=== PATIENT | female | born 1980 ===

== ENCOUNTER 2024-11-22 08:02 | Outpatient (AMB) | payer BC, SELFPAY ==
--- NOTE | 2024-11-22 11:26 | A.OFFVIS_ITS ---
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 Allergies No Known Allergies Allergy (Verified 11/22/24 11:27) Medication List - Last Reconciled 11/22/24 by Raf Castaneda MD bupropion HCl XL (Wellbutrin XL) 300 mg PO QAM duloxetine 20 mg PO BID gabapentin mg PO lamotrigine ER 200 mg PO DAILY losartan-hydrochlorothiazide 50-12.5 mg 1 tab PO DAILY ziprasidone HCl 80 mg PO BID HPI HPI 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: Details: Start time: 11.17am, End time: 11.57am ?I spent 35 minutes speaking with the patient on the phone plus an additional 5 minutes reviewing and updating records for a total of 40 minutes HPI Comments Details: Previous weight loss efforts: natural supplements and self diets and exercise Wakes up: 5am, weekends 9-10am, Sleeps: 10pm Breakfast: skips Lunch: 1pm (Progresso soups, smart ones) Dinner: 6pm (rice, beans, chicken, pork Snacks: 9am (granola bar), 8pm (ice cream, candy, chips) Exercise: none, Gym membership Fluids: Coffee (1 cup/d with cream and sugar), tea: none, soda: Regular Sprite, juice: none, ETOH: none PFSH Medical History (Updated 11/22/24 @ 11:33 by Raf Castaneda MD) Sleep apnea DJD (degenerative joint disease) Anxiety Depression Bipolar 1 disorder Hypertension Morbid obesity History of female sterilization Family History (Updated 11/12/24 @ 11:28 by Ce Ramirez CMA) Mother Colon cancer Diabetes Hypertension High cholesterol Father Gout Arthritis Son ADHD Son Mental health problem Daughter No problems noted. Social History (Updated 11/12/24 @ 11:28 by Ce Ramirez CMA) Alcohol intake: never Patient Tobacco Use Status: Never used Tobacco Telehealth Telehealth Telehealth Platform: Telephone Location of provider rendering services: practice address Location of patient: address on file Patient Identification confirmed using: Name, : Yes Telehealth method: voice only Patient verbally consented to treatment: Yes Patient verbally consented to billing insurance company: Yes Patient informed of any privacy concerns related to visit: Yes Minutes spent on Phone/Video with Pt.: 40 Assessment & Plan Assessment & Plan (1) Morbid obesity: Code(s): E66.01 - Morbid (severe) obesity due to excess calories Category: Medical Plan: ?1.? Please buy the body composition scale we discussed and send me weight measurements as soon as possible and then once a week. 2. The best choice would be to purchase a stationary bike at home that can track calories. Let me know if you do so I can give you an exercise plan. 3. Goal is to lose at least 1.5-2lbs per week 5. Goal to lose at least 10% of your weight.
[2024-11-22 11:56] VITALS: BMI 53.0
== END 2024-11-22 11:58 | disposition home or self-care (01) ==
LOC: HO.HBS 08:02
PROVIDERS: PCP Student in an Organized Health Care Education/Training Program; Visit Provider Surgery
DX: E66.813 Obesity, class 3 (principal); Z68.43 Body mass index [BMI] 50.0-59.9, adult
CPT/HCPCS: 98016

== ENCOUNTER 2025-02-11 12:02 | Outpatient (REF) | payer BC, SELFPAY ==
--- NOTE | ~2025-02-11 | XR_ITS ---
EXAMINATION: XR CHEST CLINICAL INFORMATION: E66.01 - Morbid (severe) obesity due to excess calories COMPARISON: None available. TECHNIQUE: 2 views of the chest were obtained. FINDINGS: No consolidation, pleural effusion or pneumothorax. No hyperinflation. Cardiomediastinal silhouette size is normal. Multilevel moderate thoracic spondylosis. Degenerative changes in the right shoulder. XR/XR chest 2V IMPRESSION: No acute airspace disease. Spondylosis, thoracic spine. Electronically signed by: Liam Trinh MD 02/11/2025 12:51 PM EDT RP
--- NOTE | 2025-02-11 12:10 | ECG_ITS ---
Test Reason : MOR OBS Blood Pressure : */* mmHG Vent. Rate : 82 BPM Atrial Rate : 82 BPM P-R Int : 166 ms QRS Dur : 80 ms QT Int : 364 ms P-R-T Axes : 35 7 36 degrees QTcB Int : 425 ms Normal sinus rhythm Low voltage QRS Borderline ECG No previous ECGs available Referred By: Raf Castaneda Electronically Signed By: JNUIE CONNOLLY MD
[2025-02-11 12:23] LABS: MANUAL DIFF FLAG NO
[2025-02-11 13:10] LABS: Basophils Absolute Auto 0.1 X10*3/uL (0.0-0.2); Basophils Percent Auto 1.1 % (0-2); Eosinophils Absolute Auto 0.1 X10*3/uL (0.0-0.4); Eosinophils Percent Auto 1.5 % (0-4); Hematocrit 36.3 % (37.0-47.0); Hemoglobin 12.2 g/dl (12.0-16.0); Imm Gran Abs Auto 0.05 X10*3/uL (0.00-0.03); Imm Gran Pct Auto 0.7 % (0.0-0.4); Lymphocytes Absolute Auto 1.6 X10*3/uL (1.2-4.9); Lymphocytes Percent Auto 20.7 % (20-40); Mean Corpuscular HGB Conc 33.6 g/dl (31.0-35.0); Mean Corpuscular Volume 86.4 fL (80.0-98.0); Mean Platelet Volume 10.3 fL (9.4-12.3); Monocytes Absolute Auto 0.6 X10*3/uL (0.1-1.2); Monocytes Percent Auto 7.7 % (2-11); Neutrophils Absolute Auto 5.2 x10*3/uL (2.0-8.3); Neutrophils Percent Auto 68.3 % (45-73); Platelet Count 285 X10*3/uL (160-400); Red Cell Distribution Width 13.3 % (11.0-16.0); White Blood Count 7.6 X10*3/uL (4.8-10.8)
[2025-02-11 13:14] LABS: Estimated Average Glucose 105 mg/dL; Hemoglobin A1c % 5.3 % (<6.0); Total Hemoglobin (HGBA1C) 3248.6246 umol/L
[2025-02-11 13:27] LABS: Alanine Aminotransferase 7 U/L (0-31); Albumin Level 3.7 g/dL (3.5-5.0); Alkaline Phosphatase 96 U/L (39-117); Anion Gap 11 (12-20); Aspartate Amino Transferase 15 U/L (5-31); Bilirubin Total 0.4 mg/dL (0.0-1.0); Blood Urea Nitrogen 18 mg/dL (9-16); C Reactive Protein 2.33 mg/dL (< or = 0.50); Calcium 8.9 mg/dL (8.4-10.2); Carbon Dioxide 26 mmol/L (22-29); Chloride 105 mmol/L (96-108); Cholesterol 196 mg/dL (<200); Estimated Glomerular Filt Rate > 60; Glucose Random 91 mg/dL (60-115); HDL Cholesterol 57 mg/dL (>40); Iron 95 mcg/dL (30-160); LDL Cholesterol Calculated 111 mg/dL (<100); Percent Iron Saturation 31 % (15-50); Potassium 4.3 mmol/L (3.3-5.1); Sodium 138 mmol/L (135-145); Total Iron Binding Capacity 308 mcg/dL (228-428); Total Protein 7.2 g/dL (6.5-8.0); Triglycerides 143 mg/dL (<150); Unsaturated Iron Binding 213 ug/dL
[2025-02-11 13:53] LABS: Ferritin 29 ng/mL (10-250); TSH reflex Free T4 1.61 uIU/mL (0.32-4.0)
[2025-02-11 13:58] LABS: Folate 6.1 ng/mL (> or = 4.0); Vitamin B12 178 pg/mL (200-900)
[2025-02-11 14:09] LABS: Insulin 10 uU/mL (2-29)
[2025-02-14 10:19] LABS: Vitamin A 45 mcg/dL (38-98)
[2025-02-15 06:13] LABS: Zinc 59 mcg/dL (60-130)
[2025-02-20 12:43] LABS: Vitamin B1 <6 nmol/L (8-30)
== END 2025-02-11 12:03 | disposition home or self-care (01) ==
LOC: HO.XRAY 12:02
PROVIDERS: Visit Provider Surgery
DX: E66.01 Morbid (severe) obesity due to excess calories (principal); G47.30 Sleep apnea, unspecified; Z13.1 Encounter for screening for diabetes mellitus
CPT/HCPCS: 36415; 71046; 80053; 80061; 82306; 82607; 82728; 82746; 83036; 83525; 83540; 84425; 84443; 84590; 84630; 85025; 86140; 93005

== ENCOUNTER → 2025-02-11 12:10 | Outpatient (BNV) | payer BC, SELFPAY | PROVIDERS: Visit Provider Internal Medicine Cardiovascular Disease | DX: E66.01 Morbid (severe) obesity due to excess calories (principal) | CPT/HCPCS: 93010 ==

== ENCOUNTER → 2025-02-11 12:37 | Outpatient (BNV) | payer BC, SELFPAY | PROVIDERS: Visit Provider Radiology Diagnostic Radiology | DX: E66.01 Morbid (severe) obesity due to excess calories (principal) | CPT/HCPCS: 71046 ==

== ENCOUNTER → 2025-02-23 11:00 | Outpatient (AMB) | payer BC, SELFPAY ==
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
== END ==
LOC: HO.HBST 11:11
PROVIDERS: Visit Provider Counselor Mental Health
DX: F31.9 Bipolar disorder, unspecified (principal); F43.10 Post-traumatic stress disorder, unspecified
CPT/HCPCS: 90791

== ENCOUNTER 2025-03-17 11:08 | Outpatient (AMB) | payer BC, SELFPAY ==
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
== END 2025-03-17 11:59 | disposition home or self-care (01) ==
LOC: HO.HBST 11:08
PROVIDERS: Visit Provider Counselor Mental Health
DX: F31.9 Bipolar disorder, unspecified (principal); F43.10 Post-traumatic stress disorder, unspecified; Z71.89 Other specified counseling
CPT/HCPCS: 90837

== ENCOUNTER 2025-03-22 08:53 | Outpatient (REF) | payer BC, SELFPAY ==
--- NOTE | ~2025-03-22 | US_ITS ---
EXAMINATION: US ABDOMEN COMPLETE WITH LIVER ELASTOGRAPHY HISTORY: E66.01 - Morbid (severe) obesity due to excess calories TECHNIQUE: Real-time grayscale ultrasound imaging of the abdomen was performed and images were reviewed. COMPARISON: There are no prior studies for comparison. FINDINGS: Liver: The right lobe of the liver measures 18.3 cm in size. The left lobe of the liver measures 12.8 cm in size. The liver demonstrates normal homogeneous echotexture. No focal mass or intrahepatic biliary ductal dilatation is identified. There is normal hepatopedal flow in the portal vein. Ultrasound elastography of the liver was performed with 10 separate measurements of the liver parenchyma with the patient in the supine position. Measurements were obtained approximately 2 cm below Gaudencio's capsule and perpendicular to the capsule. Images are of satisfactory quality. The median shear wave velocity is 1.79 m/s. The interquartile range/median (IQR/median) is 0.18. Gallbladder and biliary tree: The gallbladder is unremarkable, without evidence of calculi, wall thickening, or pericholecystic fluid. There is no sonographic Urbina sign. The common bile duct is normal in caliber measuring 3 mm. Kidneys: The right kidney measures 10.9 cm in length. The left kidney measures 11.6 cm in length. The kidneys are unremarkable, without evidence of masses, hydronephrosis, or calculi. Pancreas: The pancreatic head, neck, and body are unremarkable. The pancreatic tail is obscured by bowel gas. Spleen: The spleen is normal in size and contour, measuring 10.1 cm in length. Abdominal aorta and inferior vena cava: The visualized portions of the abdominal aorta and inferior vena cava are normal in caliber. There is no free fluid in the abdomen. US/US abdomen comp w elastography IMPRESSION: Hepatomegaly. Otherwise unremarkable abdominal ultrasound. The median shear wave velocity in the liver is 1.79 m/s, corresponding to a median liver stiffness of 9.79 kPa. The IQR/median value is 0.18. This is indicative of a poor quality data set, and the estimated liver stiffness may be unreliable. Findings are indicative of a high elastography value suggestive of compensated advanced chronic liver disease. REFERENCE: Society of Radiologists in Ultrasound Liver Stiffness Thresholds (2019): LIVER STIFFNESS THRESHOLDS: *Shear wave velocity less than 1.3 m/s (Liver Stiffness equal or less than 5 kPa): High probability of being normal. *Shear wave velocity less than 1.7 m/s (Liver Stiffness less than 9 kPa): In the absence of other known clinical signs, rules out compensated advanced chronic liver disease. *Shear wave velocity between 1.7-2.1 m/s (Liver Stiffness 9-13 kPa): Suggestive of compensated advanced chronic liver disease but need further test for confirmation. *Shear wave velocity between 2.1-2.4 m/s (Liver Stiffness 13-17 kPa): Rules in compensated advanced chronic liver disease. *Shear wave velocity greater than 2.4 m/s (Liver Stiffness over 17 kPa): Suggestive of clinically significant portal hypertension. QUALITY OF DATA SET: *IQR/Median value equal or less that 0.15 implies a quality data set. *IQR/Median value over 0.15 implies a poor quality data set. SIGNIFICANT CHANGE FROM PRIOR EXAM: Significant change if liver stiffness measurement is 10% or greater from prior exam. OTHER CONSIDERATIONS: The stage of liver fibrosis may be overestimated in the setting of acute hepatitis, liver inflammation, elevated liver function tests, hepatic vascular congestion, obstructive cholestasis, non-fasting state, and infiltrative diseases such as amyloidosis and lymphoma. In some patients with NAFLD, the liver stiffness thresholds for compensated advanced chronic liver disease may be lower. In causes other than viral hepatitis and NAFLD, liver stiffness thresholds are not well established. Electronically signed by: Donte Jimenes MD 03/22/2025 09:36 AM EDT
== END 2025-03-22 08:54 | disposition home or self-care (01) ==
LOC: HO.US 08:53
PROVIDERS: Visit Provider Surgery
DX: E66.01 Morbid (severe) obesity due to excess calories (principal); G47.30 Sleep apnea, unspecified
CPT/HCPCS: 76700; 76981

== ENCOUNTER → 2025-03-22 08:55 | Outpatient (BNV) | payer BC, SELFPAY | PROVIDERS: Visit Provider Radiology Diagnostic Radiology | DX: R16.0 Hepatomegaly, not elsewhere classified (principal) | CPT/HCPCS: 76700; 76981 ==

== ENCOUNTER 2025-03-31 10:50 | Day surgery (SDC) | payer BC, SELFPAY ==
[2025-03-29 10:48] VITALS: BMI 53.0
--- NOTE | 2025-03-29 14:57 | HO.ANESPROP2 ---
Documented by User: Megan Damico NP 03/29/25 14:58 HPI - Anesthesia Eval Consult details Narrative: 45yo F for Upper Endoscopy BMI 53 PMFSH Active Problems Active Problems: All Active Problems Sleep apnea (Acute) DJD (degenerative joint disease) (Acute) Anxiety (Acute) Depression (Acute) Bipolar 1 disorder (Acute) Hypertension (Acute) Morbid obesity (Acute) Past Medical History Medical History Sleep apnea DJD (degenerative joint disease) Anxiety Depression Bipolar 1 disorder Hypertension Morbid obesity History of female sterilization Family History Family History Mother Colon cancer Diabetes Hypertension High cholesterol Father Gout Arthritis Son ADHD Son Mental health problem Daughter No problems noted. Surgical History Surgical History History of head, eyes, ears, nose, and throat (HEENT) surgery Social History Social History Alcohol intake: never Patient Tobacco Use Status: Never used Tobacco Advance Directives: No Advance Directives Information Provided: Yes Meds Allergies Allergy/AdvReac Type Severity Reaction Status Date / Time No Known Allergies Allergy Verified 11/22/24 11:27 Home Medications ?Medication ?Instructions ?Recorded ?Confirmed ?Last Taken ?Type duloxetine 20 mg capsule,delayed 20 mg PO BID 11/12/24 03/31/25 Unknown History release gabapentin 300 mg capsule 300 mg PO DAILY 11/12/24 03/31/25 Unknown History lamotrigine 200 mg tablet,extended 200 mg PO DAILY 11/12/24 03/31/25 Unknown History release 24 hr losartan 50 mg-hydrochlorothiazide 1 tab PO DAILY 11/12/24 03/31/25 Unknown History 12.5 mg tablet ziprasidone HCl 80 mg capsule 80 mg PO BID 11/12/24 03/31/25 Unknown History bupropion HCl 300 mg 24 hr tablet, 300 mg PO QAM 11/22/24 03/31/25 Unknown History extended release (Wellbutrin XL) Exam Height,Weight and Vital Signs: Height 5 ft 3 in Weight 135.624 kg Narrative Narrative: EKG 01/2025 Vent. Rate : 82 BPM Atrial Rate : 82 BPM P-R Int : 166 ms QRS Dur : 80 ms QT Int : 364 ms P-R-T Axes : 35 7 36 degrees QTcB Int : 425 ms Normal sinus rhythm Low voltage QRS Borderline ECG No previous ECGs available Assessment and Plan Assessment Anesthesia Assessment: Chart Reviewed Documented by User: Ana M Teague MD 03/31/25 11:20 [facility] Past Medical History Medical History Sleep apnea DJD (degenerative joint disease) Anxiety Depression Bipolar 1 disorder Hypertension Morbid obesity History of female sterilization Family History Family History Mother Colon cancer Diabetes Hypertension High cholesterol Father Gout Arthritis Son ADHD Son Mental health problem Daughter No problems noted. Surgical History Surgical History History of head, eyes, ears, nose, and throat (HEENT) surgery History of Problems with Anesthesia: No Social History Social History Alcohol intake: never Patient Tobacco Use Status: Never used Tobacco Advance Directives: No Advance Directives Information Provided: Yes Meds Allergies Allergy/AdvReac Type Severity Reaction Status Date / Time No Known Allergies Allergy Verified 11/22/24 11:27 Home Medications ?Medication ?Instructions ?Recorded ?Confirmed ?Last Taken ?Type duloxetine 20 mg capsule,delayed 20 mg PO BID 11/12/24 03/31/25 Unknown History release gabapentin 300 mg capsule 300 mg PO DAILY 11/12/24 03/31/25 Unknown History lamotrigine 200 mg tablet,extended 200 mg PO DAILY 11/12/24 03/31/25 Unknown History release 24 hr losartan 50 mg-hydrochlorothiazide 1 tab PO DAILY 11/12/24 03/31/25 Unknown History 12.5 mg tablet ziprasidone HCl 80 mg capsule 80 mg PO BID 11/12/24 03/31/25 Unknown History bupropion HCl 300 mg 24 hr tablet, 300 mg PO QAM 11/22/24 03/31/25 Unknown History extended release (Wellbutrin XL) Exam Airway Mallampati Class: III TM Dist: >3cm Neck ROM: Full Loose/Missing/Broken Teeth: No Heart: RRR Lungs: CTA Assessment and Plan Assessment Anesthesia Assessment: Anesthesia Plan Discussed Final Anesthetic Review History of Problems with Anesthesia: No NPO: Yes ASA Class: III Final Preanesthetic Review: Meds/Allgs Chart Reviewed, Consent Obtained/Reviewed and Anes Risks/Benef Reviewed Patient Risk: Intermediate Procedure Risk: Intermediate Anesthetic Plan Anesthetic Plan: MAC: Disposition: Standard PACU
[2025-03-31 11:03] VITALS: BMI 49.4
[2025-03-31 11:10] VITALS: BP 142/98; PULSE 96; RESP 18; TEMP 36.1; O2SAT 97
--- NOTE | 2025-03-31 11:10 | MHC.SHP ---
Pre-Procedural Eval Section A - 24 Hr Update-Section A only Date of Service: 03/31/25 The patient is an INPATIENT: No The patient has been examined within 24 hours of the surgical procedure. The History & Physical has been completed within 30 days and I have reviewed it.: Yes Section B - Complete if H&P > 30 days Chief Complaint: Morbid (severe) obesity due to excess calories Relevant Family History (Specify if Yes): No Relevant Social History: None Present Medications: None Medical History: No relevant PMH History of Previous Operations: No relevant previous surgery Allergies: Allergies Allergy/AdvReac Type Severity Reaction Status Date / Time No Known Allergies Allergy Verified 11/22/24 11:27 Review of Systems Sugical H&P ROS: Negative: Constitution, Cardiovascular, Respiratory, Neurological, Psychiatric, Hem-Onc, Allergic/Immunologic, Gastrointestinal, Genitourinary, Musculoskeletal, Integumentary, Endocrine and Eyes/Ears/Nose/Throat Exam Surgical H&P Exam: Normal: HEENT, Normal: Heart, Normal: Lungs, Normal: Extremities, Normal: Abdomen, Normal: Skin and Normal: Neurological Plan Diagnosis/Plan: Unchanged (EGD to assess the stomach's anatomy. Risks of bleeding and perforation were discussed with the patient and she is in agreement with the plan.) I have reviewed the history and physical and performed a pertinent physical examination on my patient. No changes have occurred unless specified. Time Spent With Patient Time: Total time managing care of this patient today ____ minutes.
--- NOTE | 2025-03-31 11:17 | P.BOP_ITS ---
Brief Operative Note Date of Service: 03/31/25 Pre-op diagnosis: Morbid obesity Post-op diagnosis: same Procedure: PROCEDURE DATE: 03/31/2025 PREOPERATIVE DIAGNOSIS: Morbid obesity POSTOPERATIVE DIAGNOSIS: ?Same as above. 1) Normal endoscopy PROCEDURE: [id number] with biopsies Surgeon: Marty Castaneda M.D.. Ph.D. Auto Air Conditioning Mechanic: None ? Anesthesia: IV sedation Estimated blood loss: ?Minimal FINDINGS AND PROCEDURE: ? OPERATIVE INDICATIONS: ?The patient is a 70 year old female known to me who is interested in bariatric surgery. Based on this information I recommended an upper endoscopy to evaluate the stomach's anatomy. Risks and complications of the surgery were discussed with the patient in advance particularly the possibility of perforation or bleeding that may require surgical intervention. The patient understood the risks and was in agreement with the plan. ? PROCEDURE: After informed consent was obtained by the patient, the patient was ?transferred to the Operating Room and was placed in the supine position.? After successful induction of IV sedation, a mouth block was inserted and the patient was placed in the left lateral decubitus position. An upper endoscopy was performed next, the oropharynx and esophagus appeared within the normal limits. There was no hiatal hernia. The z-line was smooth. Two biopsies were obtained from the distal esophagus 2-3 cm proximal to the GE junction and two additional biopsies from the GE junction. The stomach was entered and it appeared to be of normal size. There was mild gastritis at distal antrum. There was no stricture or ulcer. A biopsy was obtained from the gastric fundus and the antrum. No significant bleeding was noted from any of the biopsy sites. Retrolexion of the scope confirmed a normal GE junction. The scope was then advanced into the duodenum which appeared to be normal as well. At that point the duodenum ?and the stomach were decompressed and the scope was withdrawn from the patient's mouth. The patient extubated and was transferred in stable condition to the Recovery Room for further care. I was present and performed all steps of the procedure. There were no residents to assist with this case. Spike Castaneda M.D., Ph.D. Surgeon: Raf Castaneda MD Anesthesia: MAC Was an Auto Air Conditioning Mechanic used for this Procedure?: No Estimated blood loss (mL): 0 IV fluids (mL): 400 Urine output (mL): 0 (No Godinez to record output) Pathology: other (1) antrum x1, 2) fundus x1, 3) GE junction x2, 4) distal esophagus x2) Condition: stable Disposition: PACU
[2025-03-31] MEDS: Lactated Ringers 1,000 ML 80 ML IVCONT (11:19)
[2025-03-31 11:33] LABS: UPreg QC Valid YES; Urine Pregnancy NEGATIVE (NEGATIVE)
[2025-03-31 12:59] VITALS: BP 121/80; PULSE 100; RESP 12; TEMP 36.6; O2SAT 96
[2025-03-31 13:04] VITALS: BP 127/90; PULSE 99; RESP 18; O2SAT 97
[2025-03-31 13:09] VITALS: BP 142/97; PULSE 89; RESP 18; O2SAT 97
[2025-03-31 13:20] VITALS: BP 148/100; PULSE 92; RESP 18; TEMP 36.5; O2SAT 99
== END 2025-03-31 13:43 | disposition home or self-care (01) ==
PROVIDERS: Nurse Practitioner; Visit Provider Surgery
PROC: 0DJ08ZZ Inspection of Upper Intestinal Tract, Via Natural or Artificial Opening Endoscopic (ICD-10-PCS; CPT 43235; principal; 2025-03-31 13:40)
DX: E66.01 Morbid (severe) obesity due to excess calories (principal); Z68.43 Body mass index [BMI] 50.0-59.9, adult; K29.60 Other gastritis without bleeding; I10 Essential (primary) hypertension; M19.90 Unspecified osteoarthritis, unspecified site; G47.30 Sleep apnea, unspecified; F31.9 Bipolar disorder, unspecified; Z79.899 Other long term (current) drug therapy; Z98.890 Other specified postprocedural states
CPT/HCPCS: 43239; 81025; 88305; 88313; 88342; J1100; J1596; J2250; J2704

== ENCOUNTER → 2025-03-31 10:50 | Outpatient (BNV) | payer BC, SELFPAY | PROVIDERS: Visit Provider Surgery | DX: K29.70 Gastritis, unspecified, without bleeding (principal) | CPT/HCPCS: 43239 ==

== ENCOUNTER 2025-04-25 08:00 | Outpatient (AMB) | payer BC, SELFPAY ==
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
== END 2025-04-25 08:54 | disposition home or self-care (01) ==
LOC: HO.HBST 08:54
PROVIDERS: Visit Provider Counselor Mental Health
DX: F31.9 Bipolar disorder, unspecified (principal); F43.10 Post-traumatic stress disorder, unspecified; Z71.89 Other specified counseling
CPT/HCPCS: 90832

== ENCOUNTER → 2025-04-25 08:00 | Outpatient (BNVA) | payer BC, SELFPAY | PROVIDERS: Visit Provider Counselor Mental Health | DX: F31.9 Bipolar disorder, unspecified (principal); F43.10 Post-traumatic stress disorder, unspecified; Z71.89 Other specified counseling ==

== ENCOUNTER 2025-05-02 08:04 | Outpatient (REF) | payer BC, SELFPAY ==
--- NOTE | ~2025-05-02 | FL_ITS ---
EXAMINATION: XR FLUOROSCOPY UPPER GI SERIES CLINICAL INFORMATION: Morbid obesity due to excess calories. Patient has no specific complaints. COMPARISON: None TECHNIQUE: Fluoroscopic air contrast upper GI examination was performed utilizing standard techniques with thin and thick barium and effervescent granules. Numerous spot images were obtained. Several fluoroscopic image hold cine sequences were also obtained. FINDINGS: UPPER GI SERIES: Lateral cine images of the oropharynx and hypopharynx demonstrate normal swallow mechanism with normal epiglottic inversion and soft palate elevation. No laryngeal penetration, glottic or subglottic aspiration identified. No nasopharyngeal reflux present. Hypopharyngeal structures appear normal without evidence of mass or diverticulum. There was no significant cricopharyngeal achalasia. Dual and single contrast images of the esophagus demonstrate normal caliber, contour, and mucosal pattern. No evidence of stricture, mass, or ulcerations identified. Esophageal peristalsis was normal. No evidence of hiatus hernia identified. No significant gastroesophageal reflux was seen during the course of the examination and on reflux views. Dual contrast and single contrast images of the stomach demonstrated normal contour and mucosal pattern without evidence of mass, ulceration, or other abnormality. Contrast freely passed into the gastric antrum and duodenal bulb without delay. Single and air-contrast images of the duodenal bulb demonstrate no abnormality. The duodenal sweep has a normal appearance, course, and mucosal fold appearance. FLUOROSCOPY TIME: 2 minutes, 13 seconds Number of Spot Images:9 Number of cines obtained: 8 DOSE AREA PRODUCT: [id number] uGy-m2 (microgray-meter squared) FL/FL upper GI w air IMPRESSION: Normal upper GI examination. Electronically signed by: Harrison Cortes MD 05/02/2025 09:38 AM EDT
== END 2025-05-02 08:05 | disposition home or self-care (01) ==
LOC: HO.XRAY 08:04
PROVIDERS: Visit Provider Surgery
DX: E66.01 Morbid (severe) obesity due to excess calories (principal); G47.30 Sleep apnea, unspecified
CPT/HCPCS: 74246

== ENCOUNTER → 2025-05-02 08:06 | Outpatient (BNV) | payer BC, SELFPAY | PROVIDERS: Visit Provider Radiology Diagnostic Radiology | DX: E66.01 Morbid (severe) obesity due to excess calories (principal) | CPT/HCPCS: 74246 ==

== ENCOUNTER 2025-05-23 09:06 | Outpatient (AMB) | payer BC, SELFPAY ==
--- NOTE | 2025-05-23 13:14 | A.OFFVIS_ITS ---
VS Expanded 05/23/25 13:25 Height 5 ft 3 in Weight 266 lb BMI 47.1 Body Fat % 63.4 Body Fat Mass 168.6 Fat Free Mass 97.4 Visceral Fat Rating 28 Body Water % 25.1 Body Water Mass 66.7 Basal Metabolic Rate/Score 1,327 Intake Visit Reasons: TV Pre Op LSG 05/26/2025 Allergies lisinopril Allergy (Mild, Verified 05/23/25 13:15) Rash Medication List - Last Reconciled 05/23/25 by Raf Castaneda MD bupropion HCl XL (Wellbutrin XL) 300 mg PO QAM cholecalciferol (vitamin D3) 125 mcg PO DAILY duloxetine 20 mg PO BID gabapentin 300 mg PO DAILY lamotrigine ER 200 mg PO DAILY losartan-hydrochlorothiazide 50-12.5 mg 1 tab PO DAILY mecobalamin (vitamin B12) 1,000 mcg sublingual DAILY ondansetron 4 mg PO Q6H PRN pantoprazole 40 mg PO DAILY polyethylene glycol 3350 17 grams PO DAILY sucralfate 10 mL PO BID thiamine HCl (vitamin B1) 100 mg PO DAILY zinc gluconate 10 mg PO DAILY ziprasidone HCl 80 mg PO BID HPI HPI TV Pre Op LSG 05/26/2025: Details: Start time: 1.04pm, End time: 1.34pm ?I spent 25 minutes speaking with the patient on the phone plus an additional 5 minutes reviewing and updating records for a total of 30 minutes HPI Comments Details: Overall weight loss: 33lbs, or 11.04% TBWL Is doing 2 Celebrate Rebuild protein shakes (one scoop in coconut milk), 2 Celebrate protein bars and one meal (10 forks each) Exercise: is doing the stationary bike x3/week ON LICENSE OF [facility] Medical History Sleep apnea DJD (degenerative joint disease) Anxiety Depression Bipolar 1 disorder Hypertension Morbid obesity History of female sterilization Surgical History (Updated 05/23/25 @ 10:18 by Akanksha Alcantar RN) History of esophagogastroduodenoscopy (EGD) Hx of excision of mass Family History Mother Colon cancer Diabetes Hypertension High cholesterol Father Gout Arthritis Son ADHD Son Mental health problem Daughter No problems noted. Social History Alcohol intake: never Patient Tobacco Use Status: Never used Tobacco Second Hand Smoke Exposure: No Telehealth Telehealth Telehealth Platform: Telephone Location of provider rendering services: practice address Location of patient: address on file Patient Identification confirmed using: Name, : Yes Telehealth method: voice only Patient verbally consented to treatment: Yes Patient verbally consented to billing insurance company: Yes Patient informed of any privacy concerns related to visit: Yes Minutes spent on Phone/Video with Pt.: 30 Assessment & Plan Assessment & Plan (1) Morbid obesity: Code(s): E66.01 - Morbid (severe) obesity due to excess calories Category: Medical Plan: 1. Plan for lap sleeve gastrectomy including upper GI endoscopy. All tests has been completed and reviewed and the patient is cleared for the surgery. ?If diaphragmatic or ventral hernias are present at time of surgery, these will be repaired laparoscopically as well. Risks and complications were discussed in detail including possible conversion to an open procedure, anastomotic leak, bleeding requiring transfusion, small bowel obstruction, , DVT and pulmonary embolism, cardiac, or pulmonary complications, as intermediate card tender complications such as anastomotic ulcer, insufficient weight loss and vitamin deficiencies. I emphasized the importance of close follow-up, adherence to instructions and good communication. So far she has proven to be an excellent communicator and very compliant with all our directions accomplishing a great weight loss. I believe that she is an excellent candidate and she is ready. 2. Preop prescriptions were provided and explained the purpose of each one. Need to be purchased preop. Start Pantoprazole now as you get it from the pharmacy, 1 pill per day. Sucralfate and Zofran are for after surgery as needed. 3. Bowel prep: please do 7 packets ?of Miralax mixing each one with a an 8oz glass of water, crystal light, gatorade zero, or propel ?on 05/24/25 and the same amount on 05/25/25. The Miralax you begin with one packet at a time in 8oz water or crystal light, gatorade zero, or propel ?as early in the day as you can and you do them back to back until you finish them. Continue the protein shakes during ?the bowel prep. 4. Needs to purchase 1oz medicine cups . 5. Needs to purchase Children's liquid Tylenol for postop pain control. 6. She needs to stop all the Gabapentin as of today 05/23/25. Avoid aspirin, motrin, Advil, Aleve, Meloxicam, Excedrin, Ibuprofen, Naproxyn. Tylenol is OK. 7. She needs to purchase the Celebrate multivitamins from the hospital's gift shop, chewable or pills whatever you prefer. 8. Preop blood work-up was done today 9. Importance of adherence to postop folllow-up and recommendations was underscored and she understands that. 10. Stop food and bars as of today 05/23/25 and continue with 4 Celebrate REBUILD protein shakes (TWO scoops EACH in 8oz coconut milk) at 10am-12pm, 12pm-2pm, 2pm-4pm, 5pm-7pm and one more Celebrate REBUILD shake with ONE scoop in 8oz coconut milk at 8pm-10pm. 11. No soups, broths or V8 12. The patient's?medical?history has been reviewed and they are considered low risk for post op DVT and therefore DVT prophylaxis is not considered necessary. Travel after surgery was reviewed. The patient has not disclosed any travel plans during the first 30 days after surgery and they have been advised that within the first 30 days after surgery any bus, plane, train or car travel over 2 hours in duration is contraindicated due to the possibility of developing blood clots from immobility. Any travel, needs to include periods of ambulation of 10 minutes in duration every 2 hours.? Patient was instructed to discuss any plans for travel during this period with their bariatric surgeon.? 13. Use your CPAP daily and bring it to the hospital with your mask 14. As of tomorrow, please check your blood pressure daily in the morning. If your blood pressure is: Below 120/70: do not take the Losartan/Hydrochlorothiazide 121/71 to 135/85: take HALF Losartan/Hydrochlorothiazid Over 136/86: take the whole Losartan/Hydrochlorothiazid 15. Please take at the day of surgery the following medications: Lisinopril if the blood pressure that day is high enough to justify it based on the parameters at the previous bullet point. 16. Stop any control pills and don't use them for one month after surgery 17. Absolutely no smoking or vaping, or marijuana until the surgery and for at least the first 4 weeks. Only nicotine patches are allowed. 18. Send me weight measurements on 05/26/25, the day of surgery before you go to the hospital. 19. Avoid any steroids by mouth for any reason. Let me know if someone prescribes them to you 20. These instructions supersede anything else you read in the handbook, anything you watched in videos or classes or you were told by any other provide r. If there is any conflict, you follow the above instructions and nothing else. Orders: Orders Comprehensive Met. Panel Today E66.01 - Morbid (severe) obesity due to excess calories Prothrombin Time INR Today E66.01 - Morbid (severe) obesity due to excess calories Hemoglobin A1c Today E66.01 - Morbid (severe) obesity due to excess calories Lipid Panel Today E66.01 - Morbid (severe) obesity due to excess calories Type and Screen Today E66.01 - Morbid (severe) obesity due to excess calories Partial Thromboplastin Time Today E66.01 - Morbid (severe) obesity due to excess calories C Reactive Protein Today E66.01 - Morbid (severe) obesity due to excess calories Complete Blood Count Auto Diff Today E66.01 - Morbid (severe) obesity due to excess calories Insulin Today E66.01 - Morbid (severe) obesity due to excess calories TSH reflex Free T4 Today E66.01 - Morbid (severe) obesity due to excess calories Medications: New sucralfate 10 mL PO BID 600 mL 2RF K21.9 - Gastro-esophageal reflux disease without esophagitis ondansetron Only take one every 12 hours as needed if you have nausea 4 mg PO Q6H PRN 20 tabs 0RF nausea and vomiting R11.0 - Nausea polyethylene glycol 3350 Mix each measuring cup with 8oz of water, Crystal light, or Gatorade zero, or Propel and do 7 measuring cups on 05/24/25 and another 7 measuring cups on 05/25/25 17 grams PO DAILY 238 grams 0RF Z01.818 - Encounter for other preprocedural examination pantoprazole 40 mg PO DAILY 90 tabs 0RF K21.9 - Gastro-esophageal reflux disease without esophagitis
[2025-05-23 13:25] VITALS: BMI 47.1
== END 2025-05-23 13:35 | disposition home or self-care (01) ==
LOC: HO.HBS 09:06
PROVIDERS: Visit Provider Surgery
DX: E66.01 Morbid (severe) obesity due to excess calories (principal)
CPT/HCPCS: 99214

== ENCOUNTER 2025-05-26 06:47 | Inpatient (IN) | payer BC, SELFPAY ==
[2025-05-23 11:17] LABS: MANUAL DIFF FLAG NO
[2025-05-23 11:53] LABS: INTERNATIONAL NORM RATIO 1.0 (0.9-1.1); Prothrombin Time 11.7 SEC (10.9-12.4)
[2025-05-23 11:55] LABS: Partial Thromboplastin Time 32.1 SEC (26.0-36.8)
[2025-05-23 11:56] LABS: Hematocrit 36.0 % (37.0-47.0); Hemoglobin 11.9 g/dl (12.0-16.0); Imm Gran Abs Auto 0.10 X10*3/uL (0.00-0.03); Imm Gran Pct Auto 1.1 % (0.0-0.4); Lymphocytes Absolute Auto 2.0 X10*3/uL (1.2-4.9); Mean Corpuscular HGB Conc 33.1 g/dl (31.0-35.0); Mean Corpuscular Hemoglobin 28.5 pg (27.0-33.0); Mean Corpuscular Volume 86.1 fL (80.0-98.0); NRBC Abs Auto 0.000 X10*3/uL (0.0-0.012); NRBC Pct Auto 0.0 /100WBC (0.0-0.2); Platelet Count 402 X10*3/uL (160-400); Red Blood Count 4.18 X10*6/uL (4.20-5.50); White Blood Count 9.4 X10*3/uL (4.8-10.8)
[2025-05-23 12:52] LABS: Hemoglobin A1C 111.4172 umol/L; Total Hemoglobin (HGBA1C) 3124.3532 umol/L
[2025-05-23 14:14] LABS: Anion Gap 14 (12-20)
[2025-05-23 14:18] LABS: Alanine Aminotransferase 8 U/L (0-31); Albumin Level 4.1 g/dL (3.5-5.0); Alkaline Phosphatase 96 U/L (39-117); Aspartate Amino Transferase 16 U/L (5-31); Blood Urea Nitrogen 21 mg/dL (9-16); Calcium 9.5 mg/dL (8.4-10.2); Carbon Dioxide 26 mmol/L (22-29); Chloride 106 mmol/L (96-108); Cholesterol 169 mg/dL (<200); Estimated Glomerular Filt Rate 59; HDL Cholesterol 45 mg/dL (>40); Potassium 4.1 mmol/L (3.3-5.1); Sodium 142 mmol/L (135-145); Total Protein 7.6 g/dL (6.5-8.0); Triglycerides 137 mg/dL (<150)
[2025-05-24 12:54] VITALS: BMI 46.6
--- NOTE | 2025-05-25 09:10 | HO.ANESPROP2 ---
Documented by User: Megan Damico NP 05/25/25 09:11 HPI - Anesthesia Eval Consult details Narrative: 45yo F for Gastrectomy Sleeve,EGD,possible Diaphragmatic Hernia,possible Ventral Hernia,possible Open BMI 46 PMFSH Active Problems Active Problems: All Active Problems Vitamin B1 deficiency (Acute) Zinc deficiency (Acute) Vitamin B12 deficiency (Acute) Vitamin D deficiency (Acute) Sleep apnea (Acute) DJD (degenerative joint disease) (Acute) Anxiety (Acute) Depression (Acute) Bipolar 1 disorder (Acute) Hypertension (Acute) Morbid obesity (Acute) Past Medical History Medical History Sleep apnea DJD (degenerative joint disease) Anxiety Depression Bipolar 1 disorder Hypertension Morbid obesity History of female sterilization Family History Family History Mother Colon cancer Diabetes Hypertension High cholesterol Father Gout Arthritis Son ADHD Son Mental health problem Daughter No problems noted. Surgical History Surgical History History of esophagogastroduodenoscopy (EGD) Hx of excision of mass History of Problems with Anesthesia: No Social History Social History Household Members Other:: one minor child & other adult children Are you a primary care information associate to a significant other at home: Yes (to one minor child) Do you presently have visiting nurse or other home services: No Alcohol intake: never Comment: has some difficulty walking but does not need any device Patient Tobacco Use Status: Never used Tobacco Second Hand Smoke Exposure: No Use of substances other than those prescribed or required for medical reasons: No Have you been hit, kicked, punched, or otherwise hurt by someone within the past year? If so, by whom?: No Spiritual Healthcare Practices: no Nondenominational Healthcare Practices: no Cultural Healthcare Practices: no Are you DNR?: No Advance Directives on File: No Patient : No FDLMP: 05/04/25 : No Poor oral hygiene: No Meds Allergies Allergy/AdvReac Type Severity Reaction Status Date / Time latex Allergy Intermediate Rash Verified 05/24/25 12:58 lisinopril Allergy Mild Rash Verified 05/23/25 13:15 Home Medications ?Medication ?Instructions ?Recorded ?Confirmed ?Last Taken ?Type duloxetine 20 mg capsule,delayed 20 mg PO BID 11/12/24 05/26/25 05/25/25 History release gabapentin 300 mg capsule 300 mg PO DAILY 11/12/24 05/26/25 05/21/25 History lamotrigine 200 mg tablet,extended 200 mg PO DAILY 11/12/24 05/26/25 05/25/25 History release 24 hr losartan 50 mg-hydrochlorothiazide 1 tab PO DAILY 11/12/24 05/26/25 05/26/25 History 12.5 mg tablet ziprasidone HCl 80 mg capsule 80 mg PO BID 11/12/24 05/26/25 05/25/25 History bupropion HCl 300 mg 24 hr tablet, 300 mg PO QAM 11/22/24 05/26/25 05/25/25 History extended release (Wellbutrin XL) Exam Height,Weight and Vital Signs: Height 5 ft 3 in Weight 119.295 kg Pertinent Lab Results Pertinent Lab Results: Laboratory Tests 05/23/25 05/23/25 11:02 11:15 WBC 9.4 RBC 4.18 L Hgb 11.9 L Hct 36.0 L MCV 86.1 MCH 28.5 MCHC 33.1 RDW 13.1 Plt Count 402 H D MPV 9.3 L Immature Gran % (Auto) 1.1 H Neut % (Auto) 68.7 Lymph % (Auto) 21.2 [place] % (Auto) 7.4 Eos % (Auto) 0.6 Baso % (Auto) 1.0 Lymph # (Auto) 2.0 [place] # (Auto) 0.7 Eos # (Auto) 0.1 Baso # (Auto) 0.1 Abs Immat Gran (auto) 0.10 H Absolute Neuts (auto) 6.4 Absolute Nucleated RBC 0.000 Nucleated RBC % (auto) 0.0 PT 11.7 INR 1.0 APTT 32.1 Sodium 142 Potassium 4.1 Chloride 106 Carbon Dioxide 26 Anion Gap 14 BUN 21 H Creatinine 1.02 Estim Creat Clear Calc TNP Estimated GFR 59 Random Glucose 91 Estimat Average Glucose 108 Hemoglobin A1c % 5.4 Insulin Level 16 Calcium 9.5 D Total Bilirubin 0.3 AST 16 ALT 8 Alkaline Phosphatase 96 C-Reactive Protein 0.97 H Total Protein 7.6 Albumin 4.1 Triglycerides 137 Cholesterol 169 LDL Cholesterol, Calc 97 HDL Cholesterol 45 TSH 2.05 Blood Type O Positive Antibody Screen NEGATIVE Narrative Narrative: EKG 01/2025 Vent. Rate : 82 BPM Atrial Rate : 82 BPM P-R Int : 166 ms QRS Dur : 80 ms QT Int : 364 ms P-R-T Axes : 35 7 36 degrees QTcB Int : 425 ms Normal sinus rhythm Low voltage QRS Borderline ECG No previous ECGs available Assessment and Plan Assessment Anesthesia Assessment: Chart Reviewed Final Anesthetic Review History of Problems with Anesthesia: No Documented by User: Ana M Teague MD 05/26/25 07:25 [facility] Past Medical History Medical History Sleep apnea DJD (degenerative joint disease) Anxiety Depression Bipolar 1 disorder Hypertension Morbid obesity History of female sterilization Family History Family History Mother Colon cancer Diabetes Hypertension High cholesterol Father Gout Arthritis Son ADHD Son Mental health problem Daughter No problems noted. Surgical History Surgical History History of esophagogastroduodenoscopy (EGD) Hx of excision of mass Social History Social History Household Members Other:: one minor child & other adult children Are you a primary care information associate to a significant other at home: Yes (to one minor child) Do you presently have visiting nurse or other home services: No Alcohol intake: never Comment: has some difficulty walking but does not need any device Patient Tobacco Use Status: Never used Tobacco Second Hand Smoke Exposure: No Use of substances other than those prescribed or required for medical reasons: No Have you been hit, kicked, punched, or otherwise hurt by someone within the past year? If so, by whom?: No Spiritual Healthcare Practices: no Nondenominational Healthcare Practices: no Cultural Healthcare Practices: no Are you DNR?: No Advance Directives on File: No Patient : No FDLMP: 05/04/25 : No Poor oral hygiene: No Meds Allergies Allergy/AdvReac Type Severity Reaction Status Date / Time latex Allergy Intermediate Rash Verified 05/24/25 12:58 lisinopril Allergy Mild Rash Verified 05/23/25 13:15 Home Medications ?Medication ?Instructions ?Recorded ?Confirmed ?Last Taken ?Type duloxetine 20 mg capsule,delayed 20 mg PO BID 11/12/24 05/26/25 05/25/25 History release gabapentin 300 mg capsule 300 mg PO DAILY 11/12/24 05/26/25 05/21/25 History lamotrigine 200 mg tablet,extended 200 mg PO DAILY 11/12/24 05/26/25 05/25/25 History release 24 hr losartan 50 mg-hydrochlorothiazide 1 tab PO DAILY 11/12/24 05/26/25 05/26/25 History 12.5 mg tablet ziprasidone HCl 80 mg capsule 80 mg PO BID 11/12/24 05/26/25 05/25/25 History bupropion HCl 300 mg 24 hr tablet, 300 mg PO QAM 11/22/24 05/26/25 05/25/25 History extended release (Wellbutrin XL) Assessment and Plan Assessment Anesthesia Assessment: Anesthesia Plan Discussed Final Anesthetic Review NPO: Yes ASA Class: III Final Preanesthetic Review: Meds/Allgs Chart Reviewed, Consent Obtained/Reviewed and Anes Risks/Benef Reviewed Patient Risk: Intermediate Procedure Risk: Intermediate Anesthetic Plan Anesthetic Plan: GA Disposition: Standard PACU
[2025-05-26] VITALS (20 sets, daily range): BP systolic 109–159; BP diastolic 68–102; PULSE 66–89; RESP 14–20; TEMP 36.1–36.9; O2SAT 93–100; BMI 46.6; BMI 48.6
[2025-05-26] MEDS: Lactated Ringers 1,000 ML 999 ML IV (06:30)
[2025-05-26] MEDS: Aprepitant 32 MG/4.4 ML VIAL IVPUSH (06:45)
[2025-05-26 06:49] LABS: UPreg QC Valid YES
--- NOTE | 2025-05-26 07:39 | MHC.SHP ---
Pre-Procedural Eval Section A - 24 Hr Update-Section A only Date of Service: 05/26/25 The patient is an INPATIENT: Yes The patient has been examined within 24 hours of the surgical procedure. The History & Physical has been completed within 30 days and I have reviewed it.: Yes Section B - Complete if H&P > 30 days Chief Complaint: Morbid Obesity Relevant Family History (Specify if Yes): No Relevant Social History: None Present Medications: None Medical History: No relevant PMH History of Previous Operations: No relevant previous surgery Allergies: Allergies Allergy/AdvReac Type Severity Reaction Status Date / Time latex Allergy Intermediate Rash Verified 05/24/25 12:58 lisinopril Allergy Mild Rash Verified 05/23/25 13:15 Review of Systems Sugical H&P ROS: Negative: Constitution, Cardiovascular, Respiratory, Neurological, Psychiatric, Hem-Onc, Allergic/Immunologic, Gastrointestinal, Genitourinary, Musculoskeletal, Integumentary, Endocrine and Eyes/Ears/Nose/Throat Exam Surgical H&P Exam: Normal: HEENT, Normal: Heart, Normal: Lungs, Normal: Extremities, Normal: Abdomen, Normal: Skin and Normal: Neurological Plan Diagnosis/Plan: Unchanged I have reviewed the history and physical and performed a pertinent physical examination on my patient. No changes have occurred unless specified. Time Spent With Patient Time: Total time managing care of this patient today ____ minutes.
--- NOTE | 2025-05-26 07:41 | PM.OP ---
Brief Operative Note Date of Service: 05/26/25 Pre-op diagnosis: Morbid obesity with comorbidities (see below) Post-op diagnosis: same Procedure: INITIAL PATIENT BMI ON PRESENTATION AT OUR OFFICE: 53 kg/m2 LAST BMI BEFORE SURGERY: 47.1 kg/m2 COMORBIDITIES: sleep apnea, asthma, hypertension, neuropathy, depression, anxiety, liver fibrosis ?The patient presented to the Weight Management Program with significant obesity that was negatively impacting the patient's comorbidities as listed above.? The program is a phased program with a special focus on preoperative medical weight management to promote substantial weight loss and prepare the patients for the second phase of the program: bariatric surgery. The patient participated in an intensive weekly lifestyle ?intervention and exercise program during which the patient ?has lost between the initial office visit and the last preoperative visit 33lbs, or 11% of initial actual body weight. It was deemed appropriate for the patient to now have bariatric surgery. In light of the current Covid-19 pandemic and the well documented strong association of obesity and increased risk of worse outcomes if infected with Covid-19 (REFERENCES:https://pubmed.ncbi.nlm.nih.gov/12182203/,?https://pubmed.ncbi.nlm.nih.gov/58126757/), any delay in undergoing bariatric surgery may lead to the patient's worsening health condition and increased?risk of more severe Covid-19 disease if infected. In addition a recent?study from [facility] published in [facility] on 11/12/2021 ([email or web address]) found that, among patients with obesity, substantial weight loss achieved with surgery was associated with improved outcomes of COVID-19 infection. The findings suggest that obesity can be a modifiable risk factor for the severity of COVID-19 infection. In addition, the patient met the BMI-criteria for bariatric surgery based on the BMI on initial presentation. The patient should not be penalized for achieving such weight loss because ?it is not sustainable long-term without surgical intervention and it was achieved in preparation for bariatric surgery ?under my direction and based on my published research ([email or web address] and?[email or web address].soard.org/article/[email or web address])[email or web address]-X/pdf) ?that a 10% preoperative weight loss improves long-term weight loss after surgery and reduces perioperative complications.? Insurance carriers such as [facility] have endorsed my recommendations ?and have included in their policies criteria to include a 10% preoperative weight loss requirement. PROCEDURE: Esophago-gastroscopy, laparoscopic sleeve gastrectomy and laparoscopic gastropexy INDICATIONS: This is a 45 year-old female who was electively scheduled for laparoscopic, possibly open sleeve gastrectomy. The risks and complications of the procedure were discussed with the patient in advance, particularly the possibility of ; pulmonary embolism; staple line leak; bleeding; GERD; cardiac, pulmonary, or renal complications; as well as long-term problems such as insufficient weight loss, vitamin deficiency, strictures, or ulcers. The patient understood all the risks, and was in agreement to proceed with surgery. DESCRIPTION OF PROCEDURE: After informed consent was obtained from the patient, the patient was given preoperative antibiotics, and was transferred to the operating room. After successful induction of general anesthesia, pneumatic compression devices were placed on both lower extremities. An upper endoscopy was performed next. The oropharynx and esophagus appeared to be within normal limits. There was no diaphragmatic hernia present. The stomach was entered. Then after all fluid and air were suctioned and the stomach was fully decompressed, the scope was withdrawn and secured in the mid esophagus. The patient was then prepped and draped in the usual sterile manner, and abdominal access was established at the right upper quadrant with the Alberto technique. A 12 mm blunt port was inserted, and the abdomen was insufflated with CO2 to a pressure of 15 mmHg. Under direct visualization, additional ports were placed, specifically two 5 mm Versi-step ports to the left upper quadrant, and a 5 mm Versi-Step port to the right upper quadrant. 1% lidocaine plain was used to infiltrate all port sites as well as all fascia defects. Following that, the patient was placed in a steep reverse Trendelenburg position. An additional 5 mm port was placed to the right flank for the Mediflex retractor that was used to retract the left lobe of the liver. The gastro-esophageal fat pad was opened with the ultrasonic device (Thmandoerbestar, Olympus) and the anterior esophagus and hiatus were exposed. The angle of His was opened with the ultrasonic device the fundus of the stomach from any diaphragmatic and splenic attachments. I then opened the gastrocolic ligament between the transverse colon and the greater curvature of the stomach with the ultrasonic device to enter the lesser sac and facilitate the ligation of the short gastric vessels. I started at a mid-point along the greater curvature and using the Thunderbeat, all short gastric vessels were divided all the way to the angle of His until the left sylvia was completely dissected at its entirety. I then divided the gastro-colic ligament distally to a distance of about 3-4 cm proximal to the pylorus.? The stomach was then divided transversely with two Endo JIE-45 purple and three JIE-60 articulating purple loads using the Spoke stapler and loads. Every effort was made that the gastric sleeve had a tubular shape and an even caliber throughout. Once the sleeve resection was completed, the staple line of the gastric sleeve was reinforced with Hemoclips. The resected stomach was retrieved without difficulty from the Alberto port. A gastropexy was then performed in order to prevent postoperative GERD and partial gastric volvulus. Several interrupted 2.0 Surgidac sutures were placed between the sleeve's staple line and the previously divided greater omentum and gastro-colic ligament using the Endo-Stitch device. ?An upper endoscopy was performed. There was no narrowing at the GE junction. The scope was easily advanced all the way to the pylorus which was clearly visualized. There was no narrowing anywhere and the sleeve's caliber was even throughout. The sleeve's staple line was inspected and there was no evidence of ischemia, bleeding or dehiscence. At that point the gastroscope was withdrawn from the patient?s mouth while we were decompressing the bowel and the stomach from any remaining air. I looked into the lesser sac to see how the sleeve was situating and it was situating well. There was no bleeding from the staple line, spleen, or short gastric vessels. The Mediflex retractor was removed, and the undersurface of the liver was inspected and there was no bleeding. The patient was placed in supine position. I closed the fascial defect of the 12 mm port site with a figure of eight #1 Polysorb suture. Then 30cc Ropivacaine plain with 10 mg of Dexamethasone were used to infiltrate the fascial closure as well as all skin incisions. At this point, the abdomen was deflated, all ports were removed under direct vision, and no bleeding was noted from any of the port sites. The skin incisions were irrigated with saline and were closed with 4-0 absorbable monofilament sutures. Steri-Strips and OpSites were used to cover all incisions. The patient was extubated and was transferred in stable condition to the recovery room for further care. I was present and performed all holloway parts of the procedure. Ms. Barnard was the assistant food service manager. There were no residents to assist with this case. Spike Castaneda MD, PhD, FACS Surgeon: Raf Castaneda MD Anesthesia: GETA, local and other (TAP block) Was an Package Sealer used for this Procedure?: No Package Sealer: Marta Barnard Estimated blood loss (mL): 10 IV fluids (mL): 2,100 Urine output (mL): 0 (No Godinez to record output) Pathology: other (1) Stomach, 2) gastro-esophageal fat pad) Condition: stable Disposition: PACU
--- NOTE | 2025-05-26 07:44 | P.PNGS_ITS ---
Subjective Subjective Date of Service: 05/26/25 Interval history: Feels well. Mild incisional pain. She is tolerating phase 1 bariatric diet Physical Exam 2 Vital Signs: Vital Signs: Last Vital Signs Temp 97.0 F 05/26/25 06:27 Pulse 89 05/26/25 06:27 Resp 16 05/26/25 06:27 BP 109/68 05/26/25 06:27 Pulse Ox 96 05/26/25 06:27 O2 Del Method Room Air 05/26/25 06:27 BMI result Body Mass Index 46.6 GI: Inspection: Yes normal to inspection, Yes incision (clean, dry and intact) and Yes obesity Extrem: Right lower extremity: normal to inspection (no calf tenderness) L eft lower extremity: normal to inspection ( calf tenderness) Objective Data Active Medications Albuterol/Ipratropium (Albuterol/Iprat 2.5/0.5mg 3 Ml Ampul.Neb) 3 ml INHALE ONCE PRN PRN Reason: Bronchospasm/wheezing Stop: 05/26/25 13:26 Fentanyl (Fentanyl Citrate/Pf 100 Mcg/2 Ml Vial) 25 mcg IVPUSH Q5M PRN PRN Reason: Pain, Moderate to Severe (Pain Scale 4-10) Stop: 05/26/25 13:26 Haloperidol Lactate (Haloperidol Lactate 5 Mg/Ml Vial) 1 mg IVPUSH ONCE PRN PRN Reason: intractable nausea Stop: 05/26/25 13:26 Hydromorphone HCl (Hydromorphone Hcl 0.5 Mg/0.5 Ml Syringe) 0.25 mg IVPUSH Q5M PRN PRN Reason: Pain, Moderate to Severe (Pain Scale 4-10) Stop: 05/26/25 13:26 Lactated Ringer's (Lr) 1,000 mls @ 100 mls/hr IVCONT .Q10H ROSEMARIE Stop: 05/26/25 10:14 Lactated Ringer's (Lr) 1,000 mls @ 999 mls/hr IV .Q1H1M ROSEMARIE Stop: 05/26/25 08:15 Last Admin: 05/26/25 06:30 Dose: 999 mls/hr Documented By: DAIANA Naloxone HCl (Naloxone Hcl 0.4 Mg/Ml Vial) 0.04 mg IVPUSH Q5M PRN PRN Reason: Excessive sedation or RR < 8 Ondansetron HCl (Ondansetron Odt 4 Mg Tab.Rapdis) 4 mg TRANSLINGU ONCE PRN PRN Reason: Nausea and Vomiting Stop: 05/26/25 13:26 Oxycodone HCl (Oxycodone Hcl Immed Release 5 Mg Tablet) 5 mg PO ONCE PRN PRN Reason: Pain, Moderate(Pain Scale 4-6) if no IV Access Stop: 05/26/25 13:26 Labs 05/23/25 11:15 05/23/25 11:15 Labs: Laboratory Results - last 24 hr 05/26/25 06:14 Urine Test NEGATIVE Procedures Date of Service Date of Service: 05/26/25 Progress Note: A&P Assessment and plan (1) Morbid obesity: Status: Acute Assessment and Plan: s/p laparoscopic sleeve gastrectomy, lysis of adhesions, diaphragmatic hernia repair and gastropexy Doing well Will check am labs and if OK the patient will be discharged home (2) Depression: Status: Acute (3) Anxiety: Status: Acute (4) Bipolar 1 disorder: Status: Acute (5) Hypertension: Status: Acute (6) DJD (degenerative joint disease): Status: Acute (7) Sleep apnea: Status: Acute (8) Liver fibrosis: Status: Acute Time Spent With Patient Time: Total time managing care of this patient today ____ minutes. Quality Stroke Does the patient have a stroke diagnosis?: No VTE Prior VTE?: No VTE Risk Level:: Surgical - moderate VTE Device Contraindication: N/A - Device Ordered VTE Drug Contraindication: Treatment Not Indicated
--- NOTE | 2025-05-26 10:00 | P.DS_ITS ---
DS: Providers Provider Date of admission: 05/26/25 06:47 Primary care physician: Unknown Physician DS: Diagnosis Discharge Diagnosis (1) Morbid obesity: Status: Acute (2) Depression: Status: Acute (3) Anxiety: Status: Acute (4) Bipolar 1 disorder: Status: Acute (5) Hypertension: Status: Acute (6) DJD (degenerative joint disease): Status: Acute (7) Sleep apnea: Status: Acute (8) Liver fibrosis: Status: Acute DS: Summary Hospital Course Hospital Course: ADMITTING DIAGNOSIS: morbid obesity, liver fibrosis, MARTHA, DJD, anxiety, depression, bipolar 1 disorder, HTN, vitamin deficiency DISCHARGE DIAGNOSIS: same, s/p laparoscopic sleeve gastrectomy and gastropexy PAST SURGICAL HISTORY:? History of esophagogastroduodenoscopy (EGD) Hx of excision of mass PROCEDURE: upper endoscopy, laparoscopic sleeve gastrectomy and gastropexy DISCHARGE SUMMARY: History of Present Illness: The patient is a?45 year-old woman with a BMI of?46.6 kg/m2 and associated co- morbidities as described above. The patient had extensive work-up, lost?36 lbs preoperatively and was electively scheduled for laparoscopic, possible open sleeve gastrectomy and gastropexy. Risks and complications of the surgery were discussed with the patient in advance, particularly the possibility of , pulmonary embolism, anastomotic leak, bleeding, bowel injury, GERD, cardiac, renal or pulmonary complications. The patient understood all the risks and was in agreement with the surgical plan. Hospital Course: The patient underwent an uneventful laparoscopic sleeve gastrectomy with gastropexy on the day of admission. Postoperatively, the patient was transferred to the surgical floor. The patient received IV acetaminophen and IV Dilaudid for pain control. Patient was started on bariatric phase 1 diet POD #0. On postoperative day one, the patient was feeling well without nausea, vomiting, fevers, or tachycardia. The patient had some mild incisional pain and the abdomen was soft.? ? On the morning of postoperative day one, the patient was continued on 1 ounce of water or ice every half hour. During the day, the patient did fairly well, having some incisional pain, but able to ambulate adequately and to tolerate liquids well. Since the patient is doing well, we decided that the patient was ready to be discharged. The patient was given instructions to follow-up in office next week and to call the office for any fever over 101, persistent abdominal pain, nausea, vomiting, GERD, symptoms of DVT such as calf tenderness, or leg swelling, or pulmonary embolism such as chest pain or shortness of breath.? The patient was also instructed to drink 40-60 ounces of liquids per day using the 1-ounce cups. The patient had been given prescriptions for Tylenol for pain, Zofran prn for nausea, and pantoprazole and carafate previously. The patient was encouraged to ambulate and use the incentive spirometer. The patient was allowed to shower, but no baths, and encouraged to stay active at home. All of these instructions were given to the patient personally. All questions were answered and the patient understood all instructions, the instructions were also given to the patient in print. Time Attestation Discharge Coordination Time (in mins): 30 Quality: Safe Use of Opioids Does Pt have an Active Cancer Diagnosis on the Problem List?: No Quality: Stroke Does the patient have a stroke diagnosis?: No Physical Exam Vital Signs: Vital Signs: Last Vital Signs Temp 97.1 F 05/26/25 09:47 Pulse 80 05/26/25 09:55 Resp 20 05/26/25 09:55 BP 157/101 H 05/26/25 09:55 Pulse Ox 100 05/26/25 09:55 O2 Del Method Simple Mask 05/26/25 09:55 O2 Flow Rate 6 05/26/25 09:55 BMI result Body Mass Index 46.6 DS: Data Data Completed and Pending Pending studies at discharge: Pending at discharge 05/26/25 09:10 Surgical [PTH] Routine Labs on day of discharge: Laboratory Results - last 24 hr 05/26/25 06:14 Urine Test NEGATIVE Discharge Plan Discharge Anticipated Discharge Date/Time: 05/27/25 10:00 Patient Disposition: Home, Self-Care Discharge Diagnosis: s/p laparoscopic sleeve gastrectomy with gastropexy Referrals: Physician,Unknown J [Primary Care Provider, Medical] - 1 Week Discharge Medications: Continued sucralfate 100 mg/mL suspension 10 ml PO BID Qty: 600 2RF pantoprazole 40 mg tablet,delayed release (DR/EC) 40 mg PO DAILY Qty: 90 0RF duloxetine 20 mg capsule,delayed release(DR/EC) 20 mg PO BID lamotrigine 200 mg tablet extended release 24hr 200 mg PO DAILY ziprasidone HCl 80 mg capsule 80 mg PO BID bupropion HCl [Wellbutrin XL] 300 mg tablet extended release 24 hr 300 mg PO QAM Held gabapentin 300 mg capsule 300 mg PO DAILY Hold Instructions: Resume on 05/28/25. losartan-hydrochlorothiazide 50-12.5 mg tablet 1 tab PO DAILY Hold Instructions: Resume on 05/27/25. Resume according to parameters given by Dr. Tonya Bridges cholecalciferol (vitamin D3) 125 mcg (5,000 unit) capsule 125 mcg PO DAILY Qty: 90 0RF mecobalamin (vitamin B12) 1,000 mcg tablet,disintegrating 1,000 mcg sublingual DAILY Qty: 90 0RF Rx Instructions: place tablet under tongue and allow to dissolve for at least30 secs before swallowing zinc gluconate 10 mg lozenge 10 mg PO DAILY Qty: 100 0RF thiamine HCl (vitamin B1) 100 mg tablet 100 mg PO DAILY Qty: 90 0RF polyethylene glycol 3350 17 gram/dose powder 17 g PO DAILY Qty: 238 0RF Rx Instructions: Mix each measuring cup with 8oz of water, Crystal light, or Gatorade zero, or Propel and do 7 measuring cups on 05/24/25 and another 7 measuring cups on 05/25/25 ondansetron 4 mg tablet,disintegrating 4 mg PO Q6H PRN (Reason: nausea and vomiting) Qty: 20 0RF Rx Instructions: Only take one every 12 hours as needed if you have nausea Activity on Discharge: No heavy lifting Stand Alone Forms: Patient Portal Discharge page Print Language: Chinese Care Plan Goals: weight loss Health Concerns: morbid obesity Plan of Treatment: No tub baths, sex or returning to work until discussed at first post op appo intment. No alcohol, tobacco or illegal drug use. Continue to use incentive spirometer hourly while awake. Walk in home for 5- 10 minutes every 2 hours during the first week. Wear abdominal binder with activity. Follow all meal plan instructions from your bariatric surgeon. Review bariatric handbook and call with any questions. Discharge Instructions 1. Please call your doctor or come back to the emergency room should any new symptoms arise. 2. Activity: abstain from alcohol,? limited stair climbing, no bending, no driving, no exercise, no illicit substances, no lifting, no sex, no tub bath, no work. 4. Diet: follow your bariatric surgeon's recommendations for advancing diet. 5. Dressing Change/Wound Care: Your incisions are covered with waterproof dressings. You can shower with these and pat dry. Do not rub over dressings or incisions. If the area is tender, you may apply an ice pack for short intervals (no more than 20 minutes on, followed by at least 20 minutes off). Do not apply heat. Do not use creams, lotions, or topical antibiotics unless instructed to do so by your surgeon. 6. Call your doctor if: - Your temperature exceeds 101.5 F - You experience excessive pain or swelling - You have an unexpected reaction to medication - You have excessive bleeding - You experience continued vomiting/nausea - Your incision begins to separate - Your incision shows signs of infection such as increased redness, swelling, excessive pain, heat, or drainage (light blood or clear fluid is normal) General instructions: No lifting greater than 10 lbs for the next 6 weeks[address] driving within 24 hours of taking narcotic pain medications. If you do not move your bowels in the next 2 days, please take milk of magnesia over the counter. Please follow the post op diet and do not advance your diet until instructed by your surgeon or until you are seen in the office in about 1 week. Please walk around your home every hour or two to prevent blood clots from forming in your legs. You do not need to wake from sleeping to walk. Please sleep in a bed or couch to prevent kinking at the hips and knees. Please take your incentive spirometer (your lung gang rider) home with you and use it for the next few days to prevent pneumonias. You may shower; no hot tubs, baths or swimming pools. Please make sure you are consuming 40-60 ounces of total fluids per day. Avoid all carbonation. Please call the office with any questions or concerns such as increasing abdominal pain, fever, chills, shortness of breath, chest pain, leg pain or swelling, or redness or drainage from your incisions. Do not hesitate to contact the office with any questions at . The patient's medical history has been reviewed and they are considered low risk for post op DVT and therefore DVT prophylaxis is not considered necessary. Travel after surgery was reviewed. The patient has not disclosed any travel plans during the first 30 days after surgery and they have been advised that within the first 30 days after surgery any bus, plane, train or car travel over 2 hours in duration is contraindicated due to the possibility of developing blood clots from immobility. Any travel, needs to include periods of ambulation of 10 minutes in duration every 2 hours.? The patient was instructed to discuss any plans for travel during this period with their bariatric surgeon. Assessment: s/p laparoscopic sleeve gastrectomy with gastropexy
[2025-05-26 10:48] LABS: Hematocrit 32.1 % (37.0-47.0); Hemoglobin 11.0 g/dl (12.0-16.0)
[2025-05-26 10:59] LABS: Anion Gap 16 (12-20); Blood Urea Nitrogen 20 mg/dL (9-16); Calcium 8.7 mg/dL (8.4-10.2); Carbon Dioxide 21 mmol/L (22-29); Chloride 102 mmol/L (96-108); Creatinine Clr Calc Pharmacy 77.3; Estimated Glomerular Filt Rate 51; Potassium 3.8 mmol/L (3.3-5.1); Sodium 135 mmol/L (135-145)
[2025-05-26] MEDS: Lactated Ringers 1,000 ML 100 ML IVCONT ×2 (12:30→21:58)
--- NOTE | 2025-05-26 15:08 | PHA.MEDREC ---
Pharmacy Consult ? Medication Reconciliation Pharmacy has completed the medication reconciliation. Spoke with pt and she confirmed her medications. Pt confirmed she has not picked up to start the Fondaparinux. Pt confirmed she still takes the Gabapentin 300mg tab but instead of BID pt takes it QD now. Pt stated she still uses Lamotrigine 200mg tabs once daily and is not taking the 100mg tabs anymore. Pt confirmed she is going to start the Ondansetron, Pantoprazole and Sucralfate when she gets home from the surgery today. Pt still takes meclizine 12.5mg tabs as needed for dizziness.
--- NOTE | 2025-05-26 15:15 | PHA.MEDREC ---
Addendum entered by Dillon Donato PharmD 05/26/25 15:26: reviewed Original Note: Pharmacy Consult ? Medication Reconciliation Pharmacy has completed the medication reconciliation. Spoke with pt and she confirmed her medications. Pt confirmed she has not picked up to start the Fondaparinux. Pt confirmed she still takes the Gabapentin 300mg tab but instead of 2 caps (600mg) QD pt takes it 1 cap (300mg) QD now; pt [facility] and after calling them they confirmed the pt last got that 11/03 #180 for 90. Pt stated she still uses Lamotrigine 200mg tabs once daily and is not taking the 100mg tabs anymore; [facility] confirmed pt last picked up Lamtorigine 200mg tabs 01/05 for 90 and the 100mg tabs 02/09 for 30. Pt confirmed she is going to start the Ondansetron, Pantoprazole and Sucralfate when she gets home from the surgery today. Pt still takes meclizine 12.5mg tabs as needed for dizziness.
--- NOTE | 2025-05-26 23:26 | PC.RT ---
pt does not wear cpap or have one at home
[2025-05-27 03:22] VITALS: BP 145/84; PULSE 71; RESP 18; TEMP 36.8; O2SAT 97
[2025-05-27 05:58] LABS: MANUAL DIFF FLAG NO
[2025-05-27 06:01] LABS: Hematocrit 32.9 % (37.0-47.0); Hemoglobin 11.5 g/dl (12.0-16.0); Imm Gran Abs Auto 0.11 X10*3/uL (0.00-0.03); Imm Gran Pct Auto 1.0 % (0.0-0.4); Lymphocytes Absolute Auto 1.3 X10*3/uL (1.2-4.9); Mean Corpuscular HGB Conc 35.0 g/dl (31.0-35.0); Mean Corpuscular Hemoglobin 29.0 pg (27.0-33.0); Mean Corpuscular Volume 82.9 fL (80.0-98.0); NRBC Abs Auto 0.000 X10*3/uL (0.0-0.012); NRBC Pct Auto 0.0 /100WBC (0.0-0.2); Platelet Count 355 X10*3/uL (160-400); Red Blood Count 3.97 X10*6/uL (4.20-5.50); White Blood Count 11.1 X10*3/uL (4.8-10.8)
[2025-05-27 06:15] LABS: Anion Gap 15 (12-20); Blood Urea Nitrogen 20 mg/dL (9-16); Calcium 9.0 mg/dL (8.4-10.2); Carbon Dioxide 23 mmol/L (22-29); Chloride 101 mmol/L (96-108); Creatinine Clr Calc Pharmacy 97.8; Estimated Glomerular Filt Rate > 60; Potassium 4.5 mmol/L (3.3-5.1); Sodium 134 mmol/L (135-145)
[2025-05-27 06:52] VITALS: BP 150/79; PULSE 69; RESP 15; TEMP 36.1; O2SAT 98
[2025-05-27] MEDS: buPROPion HCl XL 300 MG TAB.ER.24H PO (07:46)
--- NOTE | 2025-05-27 09:24 | HO.POSTANES ---
Post Anesthesia Evaluation Post Anesthesia Evaluation Date of Service: 05/27/25 Vital Signs: Vital Signs Temp Pulse Resp BP Pulse Ox O2 Del Method 05/27/25 06:52 96.9 F 69 15 150/79 H 98 Room Air 05/27/25 03:22 98.2 F 71 18 145/84 H 97 Room Air 05/26/25 23:25 97.9 F 05/26/25 23:20 66 18 129/76 96 Room Air Anesthesia: General Mental Status: Awake Pain Control: Satisfactory Nausea/Vomiting: None Hydration: Adequate Anesthesia-Related Issues: No Anes. Related Issues
--- NOTE | 2025-05-27 09:49 | MHC.CM.PN ---
Patient dc'd home self care via private transport prior to CM assessment.
== END 2025-05-27 09:40 | disposition home or self-care (01) | DRG 403 ==
LOC: HO.SSSA 09:59 → HO.S3 11:45
PROVIDERS: Nurse Practitioner; Physician Assistant Surgical; Admitting Provider Surgery; Visit Provider Surgery
PROC: 0DB64Z3 Excision of Stomach, Percutaneous Endoscopic Approach, Vertical (ICD-10-PCS; CPT 43845; principal; 2025-05-26 07:30)
DX: E66.01 Morbid (severe) obesity due to excess calories (principal); K74.00 Hepatic fibrosis, unspecified; F31.9 Bipolar disorder, unspecified; F41.9 Anxiety disorder, unspecified; Z68.42 Body mass index [BMI] 45.0-49.9, adult; G47.33 Obstructive sleep apnea (adult) (pediatric); I10 Essential (primary) hypertension; G62.9 Polyneuropathy, unspecified; Z79.899 Other long term (current) drug therapy
CPT/HCPCS: 36415; 80048; 80053; 80061; 81025; 83036; 83525; 84443; 85014; 85018; 85025; 85610; 85730; 86140; 86850; 86900; 86901; 88304; 88307; 88342; A4649; C9145; J0131; J0690; J1100; J1171; J1308; J2003; J2250; J2371; J2405; J2704; J2795; J3010; J7120

== ENCOUNTER → 2025-05-26 06:47 | Outpatient (BNV) | payer BC, SELFPAY | PROVIDERS: Admitting Provider Surgery; Visit Provider Surgery | DX: E66.01 Morbid (severe) obesity due to excess calories (principal); Z68.42 Body mass index [BMI] 45.0-49.9, adult | CPT/HCPCS: 43659; 43775 ==

== ENCOUNTER 2025-06-01 09:33 | Outpatient (AMB) | payer BC, SELFPAY ==
--- NOTE | 2025-06-01 09:32 | MHC.WMTHER ---
Intake Intake Visit Reasons: TV PO LSG 05/26/2025 Allergies latex Allergy (Intermediate, Verified 05/24/25 12:58) Rash lisinopril Allergy (Mild, Verified 05/23/25 13:15) Rash PFSH Medical History Sleep apnea DJD (degenerative joint disease) Anxiety Depression Bipolar 1 disorder Hypertension Morbid obesity History of female sterilization Surgical History History of esophagogastroduodenoscopy (EGD) Hx of excision of mass Family History Mother Colon cancer Diabetes Hypertension High cholesterol Father Gout Arthritis Son ADHD Son Mental health problem Daughter No problems noted. Social History Household Members: Children Household Members Other:: one minor child & other adult children Housing: House Are you a primary behavioral health care manager to a significant other at home: Yes (to one minor child) Do you presently have visiting nurse or other home services: No Alcohol intake: never Comment: has some difficulty walking but does not need any device Patient Tobacco Use Status: Never used Tobacco e-Cigarette/Vaping Use: Never Used Second Hand Smoke Exposure: No Behavioral Health Assessment Weight Management Therapy Therapy Notes Details Subjective: Patient (PT) reports undergoing weight loss surgery on 05/26/2025, with a preoperative weight of approximately 263 lbs. She denies experiencing any pain or complications during recovery and states she is tolerating the post-operative liquid diet well. She is currently consuming approximately 32?40 oz of fluids daily, including three protein shakes, though she acknowledges she has not yet consistently reached the target intake (40oz). PT describes feeling somewhat irritable but notes that her sleep has been adequate given the circumstances. She reports receiving emotional and practical support from her children, which she finds helpful. Although she denies experiencing physical hunger or persistent food-related thoughts, she states that food smells are difficult to manage at times. PT is currently on a medical leave of absence from work, expected to continue through July. Objective: The patient presents for a behavioral health post-operative follow-up visit. A guided emotional check-in was conducted to assess her current functioning, recovery, mood, and emotional state. Psychoeducation was provided on the emotional and psychological adjustments commonly experienced after bariatric surgery. We also focused on distinguishing between hunger and cravings or food thoughts, exploring possible reasons for these experiences, and strategies to work on her mindset. Emphasis was placed on becoming mindful of her physical and mental needs during these times while staying on track. The importance of adhering to the Weight Management Program (WMP) providers' instructions was emphasized, including the pace of drinking and following the meal and exercise plan. Tips and recommendations for long-term success were also discussed. Program resources were provided, and the patient was invited to join our Facebook group to stay informed about ongoing events and activities. Assessment/Response: Mental status: WNL Risk reported/identified: None Questionnaires PHQ-9 Over the last 2 weeks, how often have you been bothered by any of the following problems? 1. Little interest or pleasure in doing things: not at all 2. Feeling down, depressed, or hopeless: not at all 3. Trouble falling or staying asleep, or sleeping too much: not at all 4. Feeling tired or having little energy: not at all 5. Poor appetite or overeating: not at all 6. Feeling bad about yourself - or that you are a failure or have let yourself or your family down: not at all 7. Trouble concentrating on things, such as reading the newspaper or watching television: not at all 8. Moving or speaking so slowly that other people could have noticed. Or the opposite - being so fidgety or restless that you have been moving around a lot more than usual: not at all 9. Thoughts that you would be better off or of hurting yourself in some way: not at all Total score: 0 Source: Developed by Drs. Donte Maurice, Evangelina Aguirre, Alvin Dye and colleagues, with an educational gricelda from [employer]. Assessment & Plan Assessment & Plan (1) Bipolar 1 disorder: Code(s): F31.9 - Bipolar disorder, unspecified (2) PTSD (post-traumatic stress disorder): Code(s): F43.10 - Post-traumatic stress disorder, unspecified (3) Status post bariatric surgery: Code(s): Z98.84 - Bariatric surgery status Plan No safety concerns or behavioral health issues were identified that would require ongoing monitoring at this time. The patient is currently engaged in regular mental health care, seeing her therapist biweekly and her psychiatric prescriber monthly. She declined additional behavioral health visits through this setting but is aware that support remains available should her needs change in the future. Telehealth Telehealth Telehealth Platform: [employer] Location of provider rendering services: other (Home office. [place], [place]) Location of patient: address on file Patient Identification confirmed using: Name, : Yes Telehealth method: voice only Patient verbally consented to treatment: Yes Patient verbally consented to billing insurance company: Yes Patient informed of any privacy concerns related to visit: Yes Minutes spent on Phone/Video with Pt.: 30 Coding Level of Care Code Established Pt Tele Psytx 30 mins ([id number]) Patient Type Established Diagnoses Bipolar 1 disorder F31.9 PTSD (post-traumatic stress disorder) F43.10 Status post bariatric surgery Z98.84 Time Spent (min) 30
== END 2025-06-01 10:09 | disposition home or self-care (01) ==
LOC: HO.HBST 09:33
PROVIDERS: Visit Provider Counselor Mental Health
DX: F31.9 Bipolar disorder, unspecified (principal); F43.10 Post-traumatic stress disorder, unspecified; Z98.84 Bariatric surgery status
CPT/HCPCS: 90832

== ENCOUNTER 2025-06-02 13:42 | Outpatient (AMB) | payer BC, SELFPAY ==
--- NOTE | 2025-06-02 13:47 | MHC.OFFVISWM ---
VS Expanded 06/02/25 13:59 BP 116/70 Blood Pressure Location Rt brachial Blood Pressure Position Sitting Pulse 98 Pulse Source Pulse Oximeter Temp 96.5 F L Temperature Source Temporal Artery Scan Pulse Oximetry 98 Oxygen Delivery Method Room Air Height 5 ft 3 in Weight 253 lb 9.6 oz BMI 44.9 Body Fat % 52.0 Body Fat Mass 131.8 Fat Free Mass 121.6 Visceral Fat Rating 16.0 Body Water % 34.3 Body Water Mass 87.0 Muscle Mass/Score 115.6 Basal Metabolic Rate/Score 1,767 Intake Visit Reasons: OV PO LSG 05/26/2025 Allergies latex Allergy (Intermediate, Verified 06/02/25 13:54) Rash lisinopril Allergy (Mild, Verified 06/02/25 13:54) Rash HPI Comments Details: Patient is a pleasant 45-year-old female who returns to the office today in follow-up. She is approximately 1 week post sleeve gastrectomy performed on 05/26/2025. Weight today is 253.6 lb with a BMI of 44.9. She has lost approximately 8.6 lb since surgery. She is tolerating 3 celebrate rebuild shakes with 1 scoop each at 10-12, 2-4, 6-8. She has moved her bowels and denies any abdominal pain, nausea, reflux. [facility] Medical History (Updated 05/31/25 @ 00:04 by Bri Doe) Sleep apnea DJD (degenerative joint disease) Anxiety Depression Bipolar 1 disorder Hypertension Morbid obesity History of female sterilization Surgical History (Updated 06/02/25 @ 13:55 by Ce Ramirez CMA) S/P gastric sleeve procedure History of esophagogastroduodenoscopy (EGD) Hx of excision of mass Family History Mother Colon cancer Diabetes Hypertension High cholesterol Father Gout Arthritis Son ADHD Son Mental health problem Daughter No problems noted. Social History Household Members: Children Household Members Other:: one minor child & other adult children Housing: House Are you a primary patient care manager to a significant other at home: Yes (to one minor child) Do you presently have visiting nurse or other home services: No Alcohol intake: never Comment: has some difficulty walking but does not need any device Patient Tobacco Use Status: Never used Tobacco e-Cigarette/Vaping Use: Never Used Second Hand Smoke Exposure: No Physical Exam GI Inspection: Yes incision (Clean, dry, intact.) Assessment & Plan Assessment & Plan (1) S/P laparoscopic sleeve gastrectomy: Code(s): Z98.84 - Bariatric surgery status Category: Surgical Plan: POD 7 s/p LSG on 05/26/[address] Castaneda Weight loss prior to surgery was 36.8 pounds or 12.3 % TBWL. Original weight on 11/22/2024 was 299 pounds and op weight was 262.2 pounds. Be sure to text Dr Castaneda exactly 1 week after surgery your weight from your home scale so he can adjust your meal plan. Continue meal plan until f/u yared Vaughn in 2 weeks May shower, no submersion in bath for another week Continue abdominal binder with activity and exercise for the next 2 weeks. Exercise prior to surgery was stationary bike and outdoor walking and may resume No abdominal exercises for 6 weeks post operatively Will be emailed link to post op video for review Reminded of the pace of drinking, 2 mL per minute, 1 oz/15 min.
[2025-06-02 13:59] VITALS: BP 116/70; PULSE 98; TEMP 35.8; O2SAT 98; BMI 44.9
== END 2025-06-02 14:29 | disposition home or self-care (01) ==
LOC: HO.HBS 13:43
PROVIDERS: Visit Provider Physician Assistant Surgical
DX: Z98.84 Bariatric surgery status (principal)
CPT/HCPCS: 99024

== ENCOUNTER 2025-06-22 12:50 | Outpatient (AMB) | payer BC, SELFPAY ==
--- NOTE | 2025-06-22 12:58 | MHC.OFFVISWM ---
VS Expanded 06/22/25 13:05 BP 129/79 Blood Pressure Location Rt brachial Blood Pressure Position Sitting Pulse 84 Pulse Source Pulse Oximeter Temp 95.2 F L Temperature Source Temporal Artery Scan Pulse Oximetry 98 Oxygen Delivery Method Room Air Height 5 ft 3 in Weight 243 lb 3.2 oz BMI 43.1 Body Fat % 51.1 Body Fat Mass 124.4 Fat Free Mass 118.8 Visceral Fat Rating 15.0 Body Water % 34.9 Body Water Mass 84.8 Muscle Mass/Score 112.8 Basal Metabolic Rate/Score 1,719 Intake Visit Reasons: OV PO LSG 05/26/2025 School Psychometrist Required: No Allergies latex Allergy (Intermediate, Verified 06/22/25 13:07) Rash lisinopril Allergy (Mild, Verified 06/22/25 13:07) Rash Medication List - Last Reconciled 06/22/25 by BERNIE Lovett bupropion HCl XL (Wellbutrin XL) 300 mg PO DAILY cholecalciferol (vitamin D3) 125 mcg PO DAILY duloxetine 20 mg PO BID gabapentin 300 mg PO DAILY Held on 05/27/25. Instructions: Resume on 05/28/25. lamotrigine ER 200 mg PO DAILY losartan-hydrochlorothiazide 50-12.5 mg 1 tab PO DAILY Held on 05/27/25. Instructions: Resume on 05/27/25. Resume according to parameters given by Dr. Castaneda meclizine 12.5 mg PO TID PRN mecobalamin (vitamin B12) 1,000 mcg sublingual DAILY pantoprazole 40 mg PO DAILY sucralfate 10 mL PO BID thiamine HCl (vitamin B1) 100 mg PO DAILY zinc gluconate 10 mg PO DAILY ziprasidone HCl 80 mg PO BID HPI Comments Details: This?a?45?yo female who is s/p LSG without hiatal hernia repair on?05/26/2025. Presents for 1 month post op visit. Weight today is 243.2 pounds, with a BMI of 43.1. There has been a 55.8 pound weight loss,(initial weight 299 pounds) since starting the program on 11/22/2024 reflecting a 18.6 % total body weight loss and a weight loss of 19 pounds since surgery (operative weight 262.2 pounds) reflecting a 7.2 % TBWL since surgery. No complaints of nausea, emesis, abdominal pain or reflux. Reports infrequent but normal bowel movements every 2 days. Present meal plan includes: 8-10, 11-1, 2-4 celebrate rebuild 2 scoops in 8 oz water 5-8- celebrate protein bar 40 oz fluids daily ? Exercise routine includes: walking daily but in very small distances. Pinched nerve in her spine and injection right before surgery and slowly improving. [facility] Medical History Sleep apnea DJD (degenerative joint disease) Anxiety Depression Bipolar 1 disorder Hypertension Morbid obesity History of female sterilization Surgical History S/P gastric sleeve procedure History of esophagogastroduodenoscopy (EGD) Hx of excision of mass Family History Mother Colon cancer Diabetes Hypertension High cholesterol Father Gout Arthritis Son ADHD Son Mental health problem Daughter No problems noted. Social History Household Members: Children Household Members Other:: one minor child & other adult children Housing: House Are you a primary rn intensive care unit to a significant other at home: Yes (to one minor child) Do you presently have visiting nurse or other home services: No Alcohol intake: never Comment: has some difficulty walking but does not need any device Patient Tobacco Use Status: Never used Tobacco e-Cigarette/Vaping Use: Never Used Second Hand Smoke Exposure: No Physical Exam Const General: healthy appearing and no acute distress Resp Effort & Inspection: normal respiratory effort Auscultation: clear to auscultation bilaterally Cardio Rate: regular rate Rhythm: regular rhythm GI Auscultation: normal bowel sounds Extrem General: Yes normal to inspection Assessment & Plan Assessment & Plan (1) S/P laparoscopic sleeve gastrectomy: Code(s): Z98.84 - Bariatric surgery status Category: Surgical Plan: Patient is following the meal plan. She has decreased capacity exercising as she is recovering from a pinched nerve in her spine. This was treated with injection prior to surgery. She is improving. She was able to walk the length of the mall over the weekend without having to stop or sit down. She was enquiring about the JESS[facility] and I gave her a discount paper to join. She certainly could walk in the pool, increasing to using the stationary bike, elliptical, treadmill, rowing machine as her recovery continues. She will continue to communicate with Dr. Castaneda regarding her meal plan. Return to clinic 1 month.
[2025-06-22 13:05] VITALS: BP 129/79; PULSE 84; TEMP 35.1; O2SAT 98; BMI 43.1
== END 2025-06-22 13:21 | disposition home or self-care (01) ==
LOC: HO.HBS 12:51
PROVIDERS: Visit Provider Physician Assistant Surgical
DX: Z98.84 Bariatric surgery status (principal)
CPT/HCPCS: 99024

== ENCOUNTER 2025-07-22 13:35 | Outpatient (AMB) | payer BC, SELFPAY ==
--- NOTE | 2025-07-22 10:38 | A.OFFVIS_ITS ---
VS Expanded 07/22/25 10:39 Height 5 ft 3 in Weight 238 lb 6 oz BMI 42.2 Body Fat % 55.9 Fat Free Mass 105.2 Visceral Fat Rating 24 Body Water % 30.2 Muscle Mass/Score 99 Basal Metabolic Rate/Score 1,385 Intake Visit Reasons: TV PO LSG 05/26/2025 [employer] Operator Required: No Allergies latex Allergy (Intermediate, Verified 06/22/25 13:07) Rash lisinopril Allergy (Mild, Verified 06/22/25 13:07) Rash Medication List - Last Reconciled 07/22/25 by BERNIE Lovett bupropion HCl XL (Wellbutrin XL) 300 mg PO DAILY cholecalciferol (vitamin D3) 125 mcg PO DAILY duloxetine 20 mg PO BID gabapentin 300 mg PO DAILY Held on 05/27/25. Instructions: Resume on 05/28/25. lamotrigine ER 200 mg PO DAILY losartan-hydrochlorothiazide 50-12.5 mg 1 tab PO DAILY Held on 05/27/25. Instructions: Resume on 05/27/25. Resume according to parameters given by Dr. Castaneda meclizine 12.5 mg PO TID PRN mecobalamin (vitamin B12) 1,000 mcg sublingual DAILY pantoprazole 40 mg PO DAILY sucralfate 10 mL PO BID thiamine HCl (vitamin B1) 100 mg PO DAILY zinc gluconate 10 mg PO DAILY ziprasidone HCl 80 mg PO BID HPI Comments Details: This?a?45?yo female who is s/p LSG without hiatal hernia repair on?05/26/2025. Presents for 2 month post op visit. Weight today is 238.6 pounds, with a BMI of 42.3. There has been a 60.4 pound weight loss,(initial weight 299 pounds) since starting the program on 11/22/2024 reflecting a 20.2 % total body weight loss and a weight loss of 23.6 pounds since surgery (operative weight 262.2 pounds) reflecting a 9 % TBWL since surgery. No complaints of nausea, emesis, abdominal pain or reflux. Reports infrequent but normal bowel movements every 2 days. She had 3 weeks of nausea and after a change from celebrate rebuild to premier protein she is no longer having trouble Present meal plan includes: using premier protein rtd 8 oz at 9-11, 6-8 barebell bar 1-3 meal 4 pm 2 forks protein and 2 forks veg 40 oz fluids daily ? Exercise routine includes: none in the last 3 weeks due to nausea now resolved will return to walking [facility] Medical History Sleep apnea DJD (degenerative joint disease) Anxiety Depression Bipolar 1 disorder Hypertension Morbid obesity History of female sterilization Surgical History S/P gastric sleeve procedure History of esophagogastroduodenoscopy (EGD) Hx of excision of mass Family History Mother Colon cancer Diabetes Hypertension High cholesterol Father Gout Arthritis Son ADHD Son Mental health problem Daughter No problems noted. Social History Household Members: Children Household Members Other:: one minor child & other adult children Housing: House Are you a primary care management coordinator to a significant other at home: Yes (to one minor child) Do you presently have visiting nurse or other home services: No Alcohol intake: never Comment: has some difficulty walking but does not need any device Patient Tobacco Use Status: Never used Tobacco e-Cigarette/Vaping Use: Never Used Second Hand Smoke Exposure: No Physical Exam Vital Signs: BMI result Body Mass Index 42.2 Telehealth Telehealth Telehealth Platform: Telephone Location of provider rendering services: practice address Location of patient: address on file Patient Identification confirmed using: Name, : Yes Telehealth method: voice only Patient verbally consented to treatment: Yes Patient verbally consented to billing insurance company: Yes Patient informed of any privacy concerns related to visit: Yes Minutes spent on Phone/Video with Pt.: 15 Assessment & Plan Assessment & Plan (1) S/P laparoscopic sleeve gastrectomy: Code(s): Z98.84 - Bariatric surgery status Category: Surgical Plan: Patient had significant difficulty with the celebrate rebuild shakes. She has now switched to premier protein and tolerating a meal. She had spent 3 weeks with nausea and vomiting. She would discuss this with Dr. Castaneda and now the plan is as listed above. She was also having some difficulty with constipation and senna has been written for her. Her ambulatory status was compromised to begin with due to ongoing chronic medical issues but she is now starting to resume her ambulatory pattern. Encouraged to continue to push a little bit further each day walking so that she may achieve an adequate exercise plan. We will have her return to the office in a proximally 4-6 weeks. Medications: New sennosides (senna) 17.2 mg (2 x 8.6 mg) PO BEDTIME PRN 90 tabs 0RF constipation
[2025-07-22 10:39] VITALS: BMI 42.2
== END 2025-07-22 13:44 | disposition home or self-care (01) ==
LOC: HO.HBS 13:35
PROVIDERS: Visit Provider Physician Assistant Surgical
DX: Z98.84 Bariatric surgery status (principal)
CPT/HCPCS: 99024

== ENCOUNTER → 2025-07-22 13:35 | Outpatient (BNVA) | payer BC, SELFPAY | PROVIDERS: Visit Provider Physician Assistant Surgical | DX: E66.01 Morbid (severe) obesity due to excess calories (principal); Z68.41 Body mass index [BMI] 40.0-44.9, adult; Z98.84 Bariatric surgery status; K59.00 Constipation, unspecified ==